=== PATIENT | male | born 1960 | race African-American/Black ===

== ENCOUNTER 2019-03-11 15:54 | Emergency (ER) | payer BC, OTHER | END 2019-03-11 18:48 | disposition home or self-care (01) | LOC: JER 15:54 ==

== ENCOUNTER 2021-02-18 07:52 | Day surgery (SDC) | payer BC ==
[2021-02-14 11:57] VITALS: BMI 21.2
[2021-02-18 11:40] VITALS: TEMP 98
[2021-02-18 12:12] VITALS: BP 112/66; PULSE 48
== END 2021-02-18 12:12 | disposition home or self-care (01) ==
LOC: FASU-ENDO 07:52
PROVIDERS: ATTEND Internal Medicine Gastroenterology
PROC: 0DJD8ZZ Inspection of Lower Intestinal Tract, Via Natural or Artificial Opening Endoscopic (ICD-10-PCS; principal; 2021-02-18 11:07)
DX: Z12.11 Encounter for screening for malignant neoplasm of colon (principal); Z86.010 Personal history of colon polyps; K64.0 First degree hemorrhoids; K64.8 Other hemorrhoids

== ENCOUNTER 2021-11-09 13:47 | Inpatient (IN) | payer BC ==
[2021-11-09] MEDS ORDERED: ACETAMINOPHEN 1000 MG/100 ML BAG IVPB ONE (15:00)
[2021-11-09] MEDS ORDERED: ACETAMINOPHEN INJECTION 100 ML IVPB ONE (15:18)
[2021-11-09 15:39] LABS: URINE APPEARANCE CLEAR; URINE BILIRUBIN NEGATIVE (NEGATIVE); URINE COLOR YELLOW; URINE GLUCOSE (UA) NEGATIVE (NEGATIVE); URINE KETONE NEGATIVE (NEGATIVE); URINE LEUK ESTERASE NEGATIVE (NEGATIVE); URINE NITRITE NEGATIVE (NEGATIVE); URINE PROTEIN NEGATIVE (NEGATIVE); URINE UROBILINOGEN 0.2 mg/dL (0.2-1.0)
[2021-11-09 15:45] LABS: BASO % 0.3 % (0-2.0); EOS % 0.9 % (0-4.5); HEMATOCRIT 39.3 % (35.4-49); HEMOGLOBIN 13.7 GM/dL (11.7-16.9); LYMPH % 21.7 % (8-40); MCH 30.4 pg (25.7-33.7); MCHC 34.8 g/dl (32.0-35.9); MEAN CELL VOLUME 87.2 fl (80-96); MEAN PLT VOLUME 6.4 fl (7.5-11.1); MONO % 7.5 % (3.8-10.2); NEUT % 69.6 % (42.8-82.8); PLATELET COUNT 285 10^3/uL (134-434); RBC 4.51 M/mm3 (4.00-5.60); RDW 12.5 % (11.9-15.9); WHITE BLOOD COUNT 5.9 K/mm3 (4.0-10.0)
[2021-11-09 15:56] LABS: CALCIUM 9.3 mg/dL (8.5-10.1)
[2021-11-09 15:57] LABS: ALBUMIN 4.3 g/dl (3.4-5.0); BLOOD UREA NITROGEN 14.4 mg/dL (7-18)
[2021-11-09 16:02] LABS: BILIRUBIN,TOTAL 0.4 mg/dL (0.2-1); TOT PROT 7.6 g/dl (6.4-8.2)
[2021-11-09 16:03] LABS: INR 1.14 (0.83-1.09); PROTHROMBIN TIME (PATIENT) 13.1 SEC (9.7-13.0)
[2021-11-09 16:05] LABS: ACTIVATED PTT 30.6 SECONDS (25.2-36.5)
[2021-11-09] MEDS ORDERED: KETOROLAC TROMETHAMINE 30 MG/1 ML VIAL IVPUSH ONE (18:46)
[2021-11-09] MEDS ORDERED: KETOROLAC TROMETHAMINE 30 MG/1 ML VIAL ONE (18:54)
[2021-11-09] MEDS ORDERED: DEXAMETHASONE SOD PHOSPHATE 10 MG/1 ML VIAL IVPUSH ONE (19:21)
[2021-11-09] MEDS ORDERED: DEXAMETHASONE SOD PHOSPHATE 10 MG/1 ML VIAL ONE (19:52)
[2021-11-09] MEDS ORDERED: PANTOPRAZOLE 40 MG TABLET ONE (21:40)
[2021-11-09] MEDS ORDERED: ENOXAPARIN NA (PORCINE) 40 MG/0.4 ML DISP.SYRIN SQ ONE (21:40)
[2021-11-09] MEDS ORDERED: IBUPROFEN 400 MG TABLET (FP) PO PRN (21:41)
[2021-11-09] MEDS: ENOXAPARIN NA (PORCINE) 40 MG/0.4 ML DISP.SYRIN SQ SCH (21:47)
[2021-11-09] MEDS: PANTOPRAZOLE 40 MG TABLET PO SCH (21:47)
[2021-11-09 23:58] VITALS: BMI 20.8
[2021-11-10] MEDS ORDERED: ACETAMINOPHEN 325 MG TABLET (FP) PO PRN (06:15)
[2021-11-10] MEDS ORDERED: oxyCODONE HCL 5 MG TABLET PO PRN (06:15)
[2021-11-10] MEDS: PANTOPRAZOLE 40 MG TABLET PO SCH (09:11)
[2021-11-10] MEDS: ENOXAPARIN NA (PORCINE) 40 MG/0.4 ML DISP.SYRIN SQ SCH (09:12)
[2021-11-10] MEDS ORDERED: ALPRAZolam 1 MG TABLET PO PRN (11:24)
[2021-11-10] MEDS ORDERED: CYANOCOBALAMIN (VITAMIN B-12) 1000 MCG/1 ML VIAL IM ONE (14:14)
[2021-11-10] MEDS: CYANOCOBALAMIN 1,000 MCG TABLET (FP) PO SCH (17:22)
[2021-11-11] MEDS: PANTOPRAZOLE 40 MG TABLET PO SCH (09:27)
[2021-11-11] MEDS: CYANOCOBALAMIN 1,000 MCG TABLET (FP) PO SCH (09:27)
[2021-11-11] MEDS: ENOXAPARIN NA (PORCINE) 40 MG/0.4 ML DISP.SYRIN SQ SCH (09:28)
[2021-11-11] MEDS ORDERED: GABAPENTIN 300 MG CAPSULE PO SCH (14:45)
[2021-11-11] MEDS: GABAPENTIN 250 MG/5 ML ORAL SOLUTION, 470 ML BOTTLE PO SCH ×2 (15:31→21:39)
[2021-11-12] MEDS: GABAPENTIN 250 MG/5 ML ORAL SOLUTION, 470 ML BOTTLE PO SCH (06:59)
[2021-11-12 07:40] VITALS: BP 101/67; PULSE 53; TEMP 97.6
[2021-11-12] MEDS: CYANOCOBALAMIN 1,000 MCG TABLET (FP) PO SCH (10:24)
[2021-11-12] MEDS: PANTOPRAZOLE 40 MG TABLET PO SCH (10:24)
[2021-11-12] MEDS: ENOXAPARIN NA (PORCINE) 40 MG/0.4 ML DISP.SYRIN SQ SCH (10:24)
== END 2021-11-12 11:14 | disposition home or self-care (01) | DRG 552 ==
LOC: JER 13:47 → JERBED 19:53 → J8W 23:22
PROVIDERS: ADMIT Internal Medicine; ATTEND Internal Medicine
DX: M51.26 Other intervertebral disc displacement, lumbar region (principal); M48.061 Spinal stenosis, lumbar region without neurogenic claudication; N50.819 Testicular pain, unspecified; F41.8 Other specified anxiety disorders; N40.0 Benign prostatic hyperplasia without lower urinary tract symptoms; I86.1 Scrotal varices; R10.31 Right lower quadrant pain; R10.32 Left lower quadrant pain
CPT/HCPCS: 36415; 72133-TC; 72158-TC; 74177-TC; 76870-TC; 80053; 81003; 82607; 85025; 85610; 85651; 85730; 86140; 87086; 93005; 93010; 97116-GP; 97161-GP; 99285-25; A9579; C9803; J0131; J1100; Q9967; U0003; U0005

== ENCOUNTER 2022-02-13 06:00 | Emergency (ER) | payer BC, OTHER ==
[2022-02-13 07:31] VITALS: BP 120/73; PULSE 73; TEMP 98; BMI 21.5
[2022-02-13] MEDS ORDERED: ACETAMINOPHEN 650 MG/20.3 ML ORAL SOLUTION (CUPS) PO ONE (09:43)
[2022-02-13] MEDS ORDERED: ACETAMINOPHEN 160 MG/5 ML 473ML BULK BOTTLE ONE (09:53)
== END 2022-02-13 12:25 | disposition home or self-care (01) ==
LOC: JER 06:00
DX: M54.50 Low back pain, unspecified (principal); M54.2 Cervicalgia; R51.9 Headache, unspecified
CPT/HCPCS: 70450-TC; 72125-TC; 72131-TC; 99285-25

== ENCOUNTER 2022-03-15 12:41 | Emergency (ER) | payer BC ==
[2022-03-15 12:52] VITALS: BP 128/63; PULSE 51; TEMP 97.9; BMI 20.9
[2022-03-15] MEDS ORDERED: ACETAMINOPHEN 1000 MG/100 ML BAG IVPB ONE (13:21)
[2022-03-15] MEDS ORDERED: ACETAMINOPHEN INJECTION 100 ML IVPB ONE (13:29)
[2022-03-15 13:31] LABS: BASO % 0.5 % (0-2.0); EOS % 2.3 % (0-4.5); HEMATOCRIT 41.1 % (35.4-49); LYMPH % 24.6 % (8-40); MCH 29.9 pg (25.7-33.7); MEAN CELL VOLUME 87.8 fl (80-96); MEAN PLT VOLUME 6.7 fl (7.5-11.1); MONO % 7.2 % (3.8-10.2); NEUT % 65.4 % (42.8-82.8); PLATELET COUNT 250 10^3/uL (134-434); RBC 4.68 M/mm3 (4.00-5.60); RDW 13.3 % (11.9-15.9); WHITE BLOOD COUNT 5.3 K/mm3 (4.0-10.0)
[2022-03-15 13:46] LABS: ACTIVATED PTT 28.2 SECONDS (25.2-36.5); INR 1.12 (0.83-1.09); PROTHROMBIN TIME (PATIENT) 12.9 SEC (9.7-13.0)
[2022-03-15 14:01] LABS: ALBUMIN 4.4 g/dl (3.4-5.0); CALCIUM 9.4 mg/dL (8.5-10.1)
[2022-03-15 14:04] LABS: CREATININE 0.9 mg/dL (0.55-1.3)
[2022-03-15 14:06] LABS: BILIRUBIN,TOTAL 0.4 mg/dL (0.2-1); TOT PROT 7.8 g/dl (6.4-8.2)
[2022-03-15] MEDS ORDERED: KETOROLAC TROMETHAMINE 15 MG/ML VIAL IVPUSH ONE (14:43)
[2022-03-15] MEDS ORDERED: LIDOCAINE 5% TOPICAL PATCH TP ONE (14:43)
[2022-03-15] MEDS ORDERED: LIDOCAINE 5% TOPICAL PATCH ONE (14:57)
[2022-03-15] MEDS ORDERED: KETOROLAC TROMETHAMINE 15 MG/ML VIAL ONE (14:57)
[2022-03-15] MEDS ORDERED: LIDOCAINE PATCH REMOVAL MC SCH (22:00)
== END 2022-03-15 18:44 ==
LOC: JER 12:41
PROC: 3E0333Z Introduction of Anti-inflammatory into Peripheral Vein, Percutaneous Approach (ICD-10-PCS; principal; 2022-03-15)
PROC: 3E0333Z Introduction of Anti-inflammatory into Peripheral Vein, Percutaneous Approach (ICD-10-PCS; 2022-03-15)
DX: R07.9 Chest pain, unspecified (principal)
CPT/HCPCS: 36415; 71046-TC-FY; 71275-TC; 80053; 84484; 85025; 85379; 85610; 85730; 93005; 93010; 99285-25; Q9967

== ENCOUNTER 2022-04-19 12:14 | Emergency (ER) | payer BC ==
[2022-04-19] MEDS ORDERED: MAG HYDROX/AL HYDROX/SIMETH 30 ML UNIT-DOSE CUP PO ONE (12:24)
[2022-04-19] MEDS ORDERED: LIDOCAINE VISCOUS 2% ORAL/TOP 15 ML UNIT-DOSE CUP MM ONE (12:24)
[2022-04-19] MEDS ORDERED: FAMOTIDINE 20 MG TABLET PO ONE (12:24)
[2022-04-19 12:39] VITALS: BP 109/65; PULSE 61; TEMP 98.7; BMI 20.9
[2022-04-19] MEDS ORDERED: LIDOCAINE VISCOUS 2% ORAL/TOP 15 ML UNIT-DOSE CUP ONE (12:41)
[2022-04-19] MEDS ORDERED: FAMOTIDINE 20 MG TABLET ONE (12:41)
[2022-04-19] MEDS ORDERED: MAG HYDROX/AL HYDROX/SIMETH 30 ML UNIT-DOSE CUP ONE (12:41)
== END 2022-04-19 13:30 | disposition home or self-care (01) ==
LOC: FER 12:14
DX: K21.9 Gastro-esophageal reflux disease without esophagitis (principal)
CPT/HCPCS: 99283-25

== ENCOUNTER 2022-05-26 07:40 | Day surgery (SDC) | payer BC ==
[2022-05-23 13:42] VITALS: BMI 20.7
[2022-05-26 08:05] VITALS: RESP 20; TEMP 97.8
[2022-05-26 10:27] VITALS: BP 100/57; PULSE 68
== END 2022-05-26 11:30 | disposition home or self-care (01) ==
LOC: FASU-ENDO 07:40
PROVIDERS: ATTEND Internal Medicine Gastroenterology
PROC: 0DB78ZX Excision of Stomach, Pylorus, Via Natural or Artificial Opening Endoscopic, Diagnostic (ICD-10-PCS; 2022-05-26)
PROC: 0D748ZZ Dilation of Esophagogastric Junction, Via Natural or Artificial Opening Endoscopic (ICD-10-PCS; 2022-05-26)
PROC: 0D718ZZ Dilation of Upper Esophagus, Via Natural or Artificial Opening Endoscopic (ICD-10-PCS; 2022-05-26)
PROC: 0D728ZZ Dilation of Middle Esophagus, Via Natural or Artificial Opening Endoscopic (ICD-10-PCS; 2022-05-26)
PROC: 0D738ZZ Dilation of Lower Esophagus, Via Natural or Artificial Opening Endoscopic (ICD-10-PCS; 2022-05-26)
PROC: 0DB98ZX Excision of Duodenum, Via Natural or Artificial Opening Endoscopic, Diagnostic (ICD-10-PCS; principal; 2022-05-26 09:16)
DX: K29.50 Unspecified chronic gastritis without bleeding (principal); K31.7 Polyp of stomach and duodenum
CPT/HCPCS: 88305-TC; 88342-TC

== ENCOUNTER 2023-12-23 13:36 | Emergency (ER) | payer BC, OTHER ==
[2023-12-23 13:46] VITALS: BMI 21.6
[2023-12-23 14:24] LABS: BASO % 0.3 % (0-2.0); EOS % 1.2 % (0-4.5); HEMATOCRIT 38.9 % (35.4-49); MCH 29.6 pg (25.7-33.7); MCHC 33.4 g/dl (32.0-35.9); MEAN CELL VOLUME 88.6 fl (80-96); MEAN PLT VOLUME 7.1 fl (7.5-11.1); MONO % 7.1 % (3.8-10.2); NEUT % 71.4 % (42.8-82.8); PLATELET COUNT 241 10^3/uL (134-434); RBC 4.39 M/mm3 (4.00-5.60); RDW 13.5 % (11.9-15.9); WHITE BLOOD COUNT 6.4 K/mm3 (4.0-10.0)
[2023-12-23 14:28] LABS: INR 1.12 (0.83-1.09)
[2023-12-23 14:30] LABS: ACTIVATED PTT 29.4 SECONDS (25.2-36.5)
[2023-12-23] MEDS ORDERED: ACETAMINOPHEN INJECTION 100 ML IVPB ONE (14:36)
[2023-12-23 14:51] LABS: POTASSIUM 3.9 mmol/L (3.5-5.1)
[2023-12-23] MEDS: ACETAMINOPHEN 1000 MG/100 ML BAG IVPB ONE (14:52)
[2023-12-23 14:53] LABS: CALCIUM 9.2 mg/dL (8.5-10.1)
[2023-12-23 14:54] LABS: ALBUMIN 4.1 g/dl (3.4-5.0); BLOOD UREA NITROGEN 18.3 mg/dL (7-18); MAGNESIUM 2.3 mg/dL (1.8-2.4)
[2023-12-23 14:59] LABS: BILIRUBIN,TOTAL 0.4 mg/dL (0.2-1); TOT PROT 7.3 g/dl (6.4-8.2)
[2023-12-23] MEDS ORDERED: MECLIZINE HCL 25 MG TABLET (FP) ONE (16:14)
[2023-12-23] MEDS: MECLIZINE HCL 25 MG TABLET (FP) PO ONE (16:40)
[2023-12-23 19:07] VITALS: BP 127/75; PULSE 60; RESP 18; TEMP 98
== END 2023-12-23 19:08 | disposition home or self-care (01) ==
LOC: JER 13:36
PROC: 3E033NZ Introduction of Analgesics, Hypnotics, Sedatives into Peripheral Vein, Percutaneous Approach (ICD-10-PCS; principal; 2023-12-23)
DX: R07.89 Other chest pain (principal); R51.9 Headache, unspecified; H81.399 Other peripheral vertigo, unspecified ear
CPT/HCPCS: 36415; 70450-TC; 71046-TC-FY; 80053; 82550; 82553; 83735; 84484; 85025; 85610; 85730; 93005; 93010; 99285-25; J0131